=== PATIENT | male | born 1970 | race Caucasian/White ===

== ENCOUNTER → 2024-11-24 | Outpatient (CLI) | payer BC ==
--- NOTE | 2024-11-24 10:08 | NM ---
EXAMINATION TYPE: NM hepatobiliary w EF DATE OF EXAM: 11/24/2024 COMPARISON: Gallbladder ultrasound 5 days ago CLINICAL INDICATION: Male, 54 years old with history of R10.11 RUQ pain; TECHNIQUE: After the intravenous administration of 4.7 mCi Tc 99m Mebrofenin hepatobiliary scintigrap hy is performed. Immediate images post injection. FINDINGS: There is satisfactory initial accumulation of tracer by the liver. The gallbladder is visualized wit hin 15 minutes. The small bowel activity is noted within 40 minutes. At one hour 8 ounces of oral e nsure plus is given to mimic CCK and gallbladder ejection fraction is calculated at 66 %, in the norm al range. Therefore there is no scintigraphic evidence of cystic or common bile duct obstruction to suggest acute cholecystitis or gallbladder dyskinesia. IMPRESSION: Exam is within normal limits. [facility] Kay Rich, , 11/24/2024 10:05 AM
== END | disposition home or self-care (01) ==
LOC: RADNMMAIN 06:58
PROVIDERS: ATTEND Surgery Plastic and Reconstructive Surgery
DX: R10.11 Right upper quadrant pain (principal)
CPT/HCPCS: 78226; A9537

== ENCOUNTER 2024-12-24 07:16 | Day surgery (SDC) | payer BC ==
[2024-12-24] MEDS: IV FLUID CONTINUATION 1,000 ML IV ONE (07:37)
[2024-12-24 07:41] VITALS: TEMP 97.1
[2024-12-24] MEDS: LACTATED RINGERS 1,000 ML IV SCH (07:48)
[2024-12-24] MEDS ORDERED: fentaNYL (PF) 50 MCG/ML 2 ML AMP ONE (08:25)
[2024-12-24] MEDS ORDERED: PROPOFOL 10 MG/ML 20 ML VIAL IV ONE (08:25)
[2024-12-24] MEDS ORDERED: LIDOCAINE 1% INJ 10MG/ML (20 ML MDV) ONE (08:25)
--- NOTE | 2024-12-24 08:27 | P.GSHP ---
History of Present Illness H&P Date: 12/24/24 CHIEF COMPLAINT: GERD and colon screen HISTORY OF PRESENT ILLNESS: The patient is a 54-year-old male who presents with gastroesophageal reflux disease and need for colon screen. Upper and lower endoscopy were offered for further evaluation and management. PAST MEDICAL HISTORY: Please see list. PAST SURGICAL HISTORY: Please see list. MEDICATIONS: Please see list. ALLERGIES: Please see list. SOCIAL HISTORY: No illicit drug use FAMILY HISTORY: No reports of Crohn disease or ulcerative colitis. REVIEW OF ORGAN SYSTEMS: CONSTITUTIONAL: No reports of fevers or chills. GI: Denies any blood in stools or constipation. PHYSICAL EXAM: VITAL SIGNS: Stable GENERAL: Well-developed pleasant in no acute distress. HEENT: No scleral icterus. Extraocular movements grossly intact. Moist buccal mucosa. NECK: Supple without lymphadenopathy. CHEST: Unlabored respirations. Equal bilateral excursions. CARDIOVASCULAR: Regular rate and rhythm. Distal 2+ pulses. ABDOMEN: Soft, nondistended. MUSCULOSKELETAL: No clubbing, cyanosis, or edema. ASSESSMENT: 1. Gastroesophageal reflux disease 2. Colon screen. PLAN: 1. Recommend proceeding with an upper and lower endoscopy Past Medical History Past Medical History: GERD/Reflux History of Any Multi-Drug Resistant Organisms: None Reported Past Surgical History: Back Surgery, Orthopedic Surgery Additional Past Surgical History / Comment(s): acl repair, rt clavicle repair, fx nose repair, vasectomy, Past Anesthesia/Blood Transfusion Reactions: No Reported Reaction Smoking Status: Former smoker - Past Family History Father Family Medical History: Cancer Additional Family Medical History / Comment(s): prostate Medications and Allergies Home Medications Medication Instructions Recorded Confirmed Type No Known Home Medications 12/22/24 12/24/24 History Allergies Allergy/AdvReac Type Severity Reaction Status Date / Time No Known Allergies Allergy Verified 12/24/24 07:35 Surgical - Exam Vital Signs Temp Pulse Resp BP Pulse Ox 97.1 F L 62 18 188/88 100 12/24/24 07:36 12/24/24 07:36 12/24/24 07:36 12/24/24 07:36 12/24/24 07:36
--- NOTE | 2024-12-24 08:47 | P.PCN ---
Date of Procedure: 12/24/24 Description of Procedure: PREOPERATIVE DIAGNOSIS: Diaphragmatic hiatal hernia Abdominal pain, epigastric POSTOPERATIVE DIAGNOSIS: Gastroesophageal reflux disease Gastritis. OPERATION: Esophagogastroduodenoscopy with cold forceps biopsies along esophagus, antrum and duodenum SURGEON: Basilia Sevilla MD ANESTHESIA: MAC. INDICATIONS: The patient is a 54-year-old male who presents with epigastric abdominal pain and hiatal hernia. Benefits and risks of the procedure were described. Informed consent was obtained. DESCRIPTION: The patient was brought into the endoscopy suite and laid in the left lateral decubitus position. An Olympus gastroscope was passed along the posterior oropharynx down to the distal esophagus where the squamocolumnar junction was encountered at 44 cm from the incisors. The stomach was entered and no bile reflux was found. Additional findings are listed below. Biopsies with cold forceps were obtained of the antrum. The first through third portion of the duodenum was examined. Retroflexion of the scope confirmed Hill grade 1 lower esophageal valve. The squamocolumnar junction demonstrated LA grade B erosive esophagitis. The stomach was desufflated. The patient tolerated the procedure well. FINDINGS: Squamocolumnar junction 44 cm from the incisors. Diaphragmatic hiatus at 44 cm. Hill grade 1 lower esophageal valve. LA grade B erosive esophagitis. Biopsies obtained. Biopsies obtained of the duodenum. Chronic gastritis with biopsies obtained. RECOMMENDATIONS: Upper endoscopy as needed.
--- NOTE | 2024-12-24 09:09 | P.PCN ---
Date of Procedure: 12/24/24 Description of Procedure: PREOPERATIVE DIAGNOSIS: Colitis POSTOPERATIVE DIAGNOSIS: Tubular adenoma transverse colon Microscopic colitis Internal hemorrhoids, grade 2 Constipation OPERATION: Colonoscopy to the ileocecal valve and appendiceal orifice, cecum Colonoscopy with hot snare polypectomy Colonoscopy with cold forceps biopsy, random for microscopic colitis SURGEON: Basilia Sevilla MD. ANESTHESIA: MAC. INDICATIONS: The patient is an 54-year-old male who presents with change in bowel habits for colitis. Benefits and risks were described and informed consent was obtained. DESCRIPTION OF PROCEDURE: The patient had undergone Sutab prep. The patient had been brought into the operating room and laid in the left lateral decubitus position. After adequate intravenous sedation, the rectum was examined with 2% lidocaine jelly. The prostate was unremarkable. External hemorrhoids were encountered. The rectal tone was within normal limits. No lesions were palpated in the rectal vault. An Olympus colonoscope was advanced until the cecum, ileocecal valve and appendiceal orifice were clearly viewed. The prep was fair. No sigmoid diverticulosis was encountered. Colonic polyps were found and removed. No evidence of focal colitis was found. Retroflexion of the scope demonstrated gr khanh 2 internal hemorrhoids without active bleeding or inflammation. The colon was desufflated. The patient had tolerated the procedure well. Withdrawal time was over 6 minutes. FINDINGS: Aronchick preparation quality scale 3 (1-5) Internal hemorrhoids, grade 2 External hemorrhoids, grade 2. No arteriovenous malformations. No sigmoid diverticulosis Random biopsies for microscopic colitis Removal of 1 polyps: - Snare polypectomy proximal transverse colon, 6 mm tubulovillous adenoma No focal colitis. RECOMMENDATIONS: He still had moderate residual liquid stool obscuring more than 40% of the m [place], large adenoma resected. Hence, recommend repeat colonoscopy 2 years, 2026 Plan - Discharge Summary Discharge Rx Participant: No New Discharge Prescriptions: Continue No Known Home Medications Discharge Medication List No Known Home Medications 12/22/24 [History] Follow up Appointment(s)/Referral(s): Basilia Sevilla MD [STAFF PHYSICIAN] - 01/06/25 1:00 pm Patient Instructions/Handouts: Colorectal Polyps (GEN), Gastritis (DC) Activity/Diet/Wound Care/Special Instructions: Repeat colonoscopy 2 years2026 Discharge Disposition: HOME SELF-CARE
[2024-12-24 09:35] VITALS: BP 164/82; PULSE 50; RESP 18
== END 2024-12-24 09:46 | disposition home or self-care (01) ==
LOC: ORWHC2ENDO 07:16
PROVIDERS: ATTEND Surgery Plastic and Reconstructive Surgery
DX: D12.3 Benign neoplasm of transverse colon (principal); K29.50 Unspecified chronic gastritis without bleeding; K44.9 Diaphragmatic hernia without obstruction or gangrene; K52.9 Noninfective gastroenteritis and colitis, unspecified; K64.1 Second degree hemorrhoids; K21.00 Gastro-esophageal reflux disease with esophagitis, without bleeding; F12.90 Cannabis use, unspecified, uncomplicated; Z87.891 Personal history of nicotine dependence
CPT/HCPCS: 88305; 45380; 45385; 43239; J2003; J3010; J2704